=== PATIENT | female | born 1950 | race Caucasian/White ===

== ENCOUNTER 2016-09-14 13:57 | Emergency (ER) | payer OTHER ==
[2016-09-14 14:02] VITALS: RESP 16
--- NOTE | 2016-09-14 14:20 | CPEKG ---
Heart Rate: 79 RR Interval: 759 P-R Interval: 160 QRSD Interval: 86 QT Interval: 372 QTC Interval: 427 P [place]: 72 QRS [place]: -10 T Wave [place]: 18 EKG Severity - NORMAL ECG - EKG Impression: SINUS RHYTHM Electronically Signed By: Walter Uribe 14-Sep-2016 21:18:04
--- NOTE | 2016-09-14 14:31 | EDPHY ---
H & P Stated Complaint: chest pressure spouse has PNE just got over the FLU HPI/ROS: HPI CHIEF COMPLAINT: Cough, congestion, shortness of breath, Recent flu HISTORY OF PRESENT ILLNESS: This patient is a 66-year-old female, denies any significant medical history only surgical history is for cataract surgery, presents to the emergency room with productive cough, congestion, shortness of breath and burning sensation in her chest when she breathes. Denies sharp stabbing pain denies dull ache in her chest, denies radiation of pain denies nausea, vomiting, diaphoresis. She tells me she was diagnosed with flu 10 days ago, since being diagnosed 10 days ago she has had ongoing shortness of breath, cough with productive sputum. She has come sputum is yellow at times. No blood. She went to Urgent Care earlier today however was referred here to the emergency room for discomfort in her chest. She reports to me no significant history of cardiac disease, or family history of cardiac disease. Past Medical History: No significant medical history Past Surgical History: Cataract surgery Social History: occasional alcohol use, denies drugs or tobacco Family History: noncontributory ROS REVIEW OF SYSTEMS: A comprehensive 10 point review of systems is otherwise negative aside from elements mentioned in the history of present illness. Exam Constitutional triage nursing summary reviewed, vital signs reviewed, awake/ alert. Eyes normal conjunctivae and sclera, EOMI, PERRLA. HENT normal inspection, atraumatic, moist mucus membranes, no epistaxis, neck supple/ no meningismus, no raccoon eyes. Respiratory faint wheezing bilaterally, decreased breath sounds. Cardiovascular rate normal, regular rhythm, no murmur, no edema, distal pulses normal. Gastrointestinal soft, non-tender, no rebound, no guarding, normal bowel sounds, no distension, no pulsatile mass. Genitourinary no CVA tenderness. Musculoskeletal no midline vertebral tenderness, full range of motion, no calf swelling, no tenderness of extremities, no meningismus, good pulses, neurovascularly intact. Skin pink, warm, & dry, no rash, skin atraumatic. Neurologic awake, alert and oriented x 3, AAOx3, moves all 4 extremities equally, motor intact, sensory intact, CN II-XII intact, normal cerebellar, normal vision, normal speech. Psychiatric normal mood/affect. Heme/Lymph/Immune no lymphadenopathy. Differential Diagnosis: Includes but is not limited to in a particular order, URI, viral syndrome, bronchitis, pneumonia, doubt ACS or cardiac presentation. Medical Decision Making: This patient had an IV established obtain blood work check electrolytes, CBC, troponin, patient had an EKG and chest x-ray. She received a DuoNeb breathing treatment to see if this improves her symptoms. Re-evaluation: EKG interpretation by me on record in [facility] system. Impression time of EKG 1417: This is sinus rhythm rate of 79, no acute ischemic changes specifically no ST elevation, ST depression, significant T-wave abnormality. 1604; re-examination at this time patient is resting comfortably no acute distress. Denies chest pain or shortness of breath at this time. X-ray has been reviewed shows no focal pneumonia or opacification. EKG is nonischemic she does not have chest pain. She has a bronchitic sounding cough, productive sputum, chest congestion. Will place patient on azithromycin, guaifenesin, prednisone, albuterol. Patient understands return emergency room if there is any worsening symptoms questions or concerns. Source: Patient - Personal History Current Tetanus/Diphtheria Vaccine: Unsure Current Tetanus Diphtheria and Acellular Pertussis (TDAP): Unsure Tetanus Vaccine Date: 2011 - Medical/Surgical History Hx Asthma: No Hx Chronic Respiratory Disease: No Hx Diabetes: No Hx Cardiac Disease: No Hx Renal Disease: No Hx Cirrhosis: No Hx Alcoholism: No Hx HIV/AIDS: No Hx Splenectomy or Spleen Trauma: No Other PMH: kidney stones - Social History Smoking Status: Never smoked Constitutional: Initial Vital Signs Temperature (C) 36.8 C 09/14/16 14:00 Heart Rate 90 09/14/16 14:00 Respiratory Rate 16 09/14/16 14:00 Blood Pressure 130/72 H 09/14/16 14:00 O2 Sat (%) 98 09/14/16 14:00 O2 Delivery Mode Room Air Allergies/Adverse Reactions: soy Allergy (Verified 07/08/15 12:52) Sulfa (Sulfonamide Antibiotics) Allergy (Verified 07/08/15 12:52) Home Medications: Medication Instructions Recorded Cholecalciferol Vit D3 [Vitamin D3 2,000 units PO DAILY 01/01/16 2000 units] Citalopram [CeleXA 20 MG] 40 mg PO HS 01/01/16 Estrogens,Conjugated [Premarin 1 ladonna VG TUSA 01/01/16 Vaginal (*)] Herbals/Supplements -Info Only 1 ea PO DAILY 01/01/16 Melatonin [Melatonin 3 MG (*)] 3 mg PO HS PRN 01/01/16 [place]-3 Fatty Acids [Fish Oil 1000 1,000 mg PO DAILY 01/01/16 mg (*)] prednisoLONE ACET 1% [Pred Forte 1 drops EACHEYE QID 01/01/16 1% (*)] Nitrofurantoin Monohyd/M-Cryst 100 mg PO Q12 7 Days 01/02/16 [Macrobid] AZITHROMYCIN [Z-PACK] 250 mg PO DAILY #6 tab 09/14/16 Albuterol [Proventil Inhaler HFA 1 - 2 puffs IH Q4H #1 mdi 09/14/16 (*)] Guaifenesin [Guaifenesin ER] 600 mg PO BID #14 tab.er.12h 09/14/16 predniSONE 60 mg PO DAILY #15 tab 09/14/16 Medical Decision Making - Data Points Laboratory Results: Laboratory Results 09/14/16 14:45 09/14/16 14:45 09/14/16 09/14/16 14:53 14:45 WBC 5.02 10^3/uL (3.80-9.50) RBC 4.65 10^6/uL (4.18-5.33) Hgb 14.3 g/dL (12.6-16.3) Hct 40.6 % (38.0-47.0) MCV 87.3 fL (81.5-99.8) MCH 30.8 pg (27.9-34.1) MCHC 35.2 g/dL (32.4-36.7) RDW 12.7 % (11.5-15.2) Plt Count 372 10^3/uL (150-400) MPV 8.8 fL (8.7-11.7) Neut % (Auto) 46.8 % (39.3-74.2) Lymph % (Auto) 43.0 % (15.0-45.0) [place] % (Auto) 8.0 % (4.5-13.0) Eos % (Auto) 1.2 % (0.6-7.6) Baso % (Auto) 0.6 % (0.3-1.7) Nucleat RBC Rel Count 0.0 % (0.0-0.2) Absolute Neuts (auto) 2.35 10^3/uL (1.70-6.50) Absolute Lymphs (auto) 2.16 10^3/uL (1.00-3.00) Absolute Monos (auto) 0.40 10^3/uL (0.30-0.80) Absolute Eos (auto) 0.06 10^3/uL (0.03-0.40) Absolute Basos (auto) 0.03 10^3/uL (0.02-0.10) Absolute Nucleated RBC 0.00 10^3/uL (0-0.01) Immature Gran % 0.4 % (0.0-1.1) Immature Gran # 0.02 10^3/uL (0.00-0.10) Sodium 142 mEq/L (134-144) Potassium 4.2 mEq/L (3.5-5.2) Chloride 107 mEq/L (97-110) Carbon Dioxide 26 mEq/l (22-31) Anion Gap 9 mEq/L (8-16) BUN 13 mg/dL (7-23) Creatinine 0.9 mg/dL (0.6-1.0) Estimated GFR > 60 Glucose 94 mg/dL (70-100) Calcium 9.7 mg/dL (8.5-10.4) Troponin I < 0.012 ng/mL (0-0.034) NT-Pro-B Natriuret Pep 155 H pg/mL (0-125) Influenza Typ A,B (DFA) NEGATIVE FOR FLU (NEGATIVE) Medications Given: Discontinued Medications Albuterol/Ipratropium (Duoneb) 3 ml IH EDNOW ONE Stop: 09/14/16 14:39 Last Admin: 09/14/16 14:55 Dose: 3 ml Sodium Chloride (Ns) 1,000 mls @ 0 mls/hr IV ONCE ONE PRN Reason: As Directed Stop: 09/14/16 14:39 Last Admin: 09/14/16 14:55 Dose: 1,000 mls Departure - Departure Disposition: Home, Routine, Self-Care Clinical Impression: Acute bronchitis Qualifiers: Bronchitis organism: unspecified organism Qualifier Code: (J20.9) Acute bronchitis, unspecified Upper respiratory tract infection Qualifiers: URI type: unspecified viral URI Qualifier Code: (J06.9) Acute upper respiratory infection, unspecified Condition: Good Instructions: Viral Syndrome (ED), Upper Respiratory Infection (ED) Additional Instructions: 1.Please stay well-hydrated drink lots of fluids. 2. return to the emergency room if you have any worsening symptoms questions or concerns. 3. take Your medications as prescribed. Referrals: CARL ROMERO [Primary Care Provider] - As per Instructions Prescriptions: Guaifenesin [Guaifenesin ER] 600 mg PO BID #14 tab.er.12h Albuterol [Proventil Inhaler HFA (*)] 1 - 2 puffs IH Q4H #1 mdi AZITHROMYCIN [Z-PACK] 250 mg PO DAILY #6 tab predniSONE 60 mg PO DAILY #15 tab
[2016-09-14] MEDS ORDERED: NS 1,000 ML IV ONE (14:38)
[2016-09-14] MEDS ORDERED: IPRATROPIUM/ALBUTEROL 3 ML DEYVIAL IH ONE (14:38)
[2016-09-14 15:01] LABS: % IMMATURE GRANULYOCYTES 0.4 % (0.0-1.1); ABSOLUTE IMMATURE GRANULOCYTES 0.02 10^3/uL (0.00-0.10); ADD DIFF? NO; ADD MORPH? NO; ADD SCAN? NO; ATYPICAL LYMPHOCYTE FLAG 20 (0-99); FRAGMENT RBC FLAG 0 (0-99); HEMATOCRIT 40.6 % (38.0-47.0); HEMOGLOBIN 14.3 g/dL (12.6-16.3); LEFT SHIFT FLG 0 (0-99); LIPEMIA HEMOLYSIS FLAG 90 (0-99); MEAN CELL HEMOGLOBIN 30.8 pg (27.9-34.1); MEAN CELL HEMOGLOBIN CONCENTR. 35.2 g/dL (32.4-36.7); MEAN CELL VOLUME 87.3 fL (81.5-99.8); MEAN PLATELET VOLUME 8.8 fL (8.7-11.7); PLATELET CLUMPS FLAG 0 (0-99); PLATELET COUNT 372 10^3/uL (150-400); RED BLOOD CELL COUNT 4.65 10^6/uL (4.18-5.33); RED CELL DISTRIBUTION WIDTH 12.7 % (11.5-15.2)
[2016-09-14 15:21] LABS: ANION GAP 9 mEq/L (8-16); CALCIUM 9.7 mg/dL (8.5-10.4); CARBON DIOXIDE 26 mEq/l (22-31); CHLORIDE 107 mEq/L (97-110); CREATININE 0.9 mg/dL (0.6-1.0); GLOMERULAR FILTRATION RATE > 60; GLUCOSE 94 mg/dL (70-100); POTASSIUM 4.2 mEq/L (3.5-5.2); SODIUM 142 mEq/L (134-144)
[2016-09-14 15:31] LABS: TROPONIN I < 0.012 ng/mL (0-0.034)
--- NOTE | 2016-09-14 15:33 | DX ---
PA and Lateral Chest September 14, 2016 Clinical Indications: Dyspnea. Findings: The lungs are clear, and no masses are found. The heart and pulmonary vessels are normal. There are no pleural effusions and no pneumothorax. The bones are unremarkable for this age. Impression: No acute cardiopulmonary process.
[2016-09-14 16:34] VITALS: BP 116/79; PULSE 90; TEMP 98.6; O2SAT 97
== END 2016-09-14 16:32 | disposition home or self-care (01) ==
DX: J20.9 Acute bronchitis, unspecified (principal); J06.9 Acute upper respiratory infection, unspecified

== ENCOUNTER → 2017-03-26 | Outpatient (CLI) | payer OTHER | LOC: FIMAGING 10:07 | PROVIDERS: ATTEND Family Medicine | DX: Z12.31 Encounter for screening mammogram for malignant neoplasm of breast (principal) | CPT/HCPCS: G0202 ==

== ENCOUNTER → 2018-05-05 | Outpatient (CLI) | payer OTHER | LOC: FIMAGING 12:06 | PROVIDERS: ATTEND Family Medicine | DX: Z13.820 Encounter for screening for osteoporosis (principal); M85.89 Other specified disorders of bone density and structure, multiple sites; Z78.0 Asymptomatic menopausal state ==